=== PATIENT | female | born 1960 | race Caucasian/White ===

== ENCOUNTER 2022-12-10 08:43 | Inpatient (IN) | payer BC ==
[2022-12-10] VITALS (18 sets, daily range): BP systolic 99–135; BP diastolic 53–76
[~2022-12-10] VITALS: Ht 170.2 cm; Wt 67.9 kg
[~2022-12-10 08:43] MED LIST: ASPI81CH PO; LISI5 PO; METF500 PO; METO50ER PO
--- NOTE | 2022-12-10 17:25 | NUR ---
SHIFT SUMMARY S/P ABD YSESY/BIOPSY, 3 LAP SITES AND TRANSVERSE W/EXOFIN CDI. A&OX4, VSS/RA, MASOOD PO CLD, PRACTICE DIRECTOR MANAGING PAIN, BRISCOE PATENT/STAT LOCK ON/OFF FLOOR. PLAN FOR CT @ 0800. AT BEDSIDE. WILL REPORT TO ONCOMING NOC RN.
[2022-12-11 04:13] VITALS: BP 112/70
--- NOTE | 2022-12-11 04:48 | NUR ---
SHIFT SUMMARY POD1 LYSIS OF ADHESIONS PT HAS 3 LAP SIES WITH GLUE, 1 TRANSVERSE ABD INCISION WITH GLUE, ALL C/D/I. VITA DRAIN IN RLQ DRAINING SEROSANGUNEIUOS FLUID, BULB COMPRESSED. PT ON SOLDERING MACHINE OPERATOR, PAIN CONTROLLED PER EMAR WITH SOLDERING MACHINE OPERATOR. BRISCOE IN DRAINING CLEAR YELLOW URINE. PT TOLERATING PO INTAKE. DENIES ANY N/V. SLEPT T/O NIGHT. VSS. NO OTHER CONCERNS AT THIS TIME. CALL LIGHT WITHIN REACH.
[2022-12-11 04:49] LABS: BASOPHILS ABSOLUTE AUTO 0.03 K/mm3 (0.00-0.23); BASOPHILS PERCENT AUTO 0 % (0-2); EOSINOPHILS ABSOLUTE AUTO 0.02 K/mm3 (0.00-0.68); EOSINOPHILS PERCENT AUTO 0 % (0-6); Hematocrit 32.2 % (33.0-51.0); Hemoglobin 10.8 g/dL (11.5-16.0); IMMATURE GRAN ABSOLUTE AUTO 0.08 K/mm3 (0.00-0.10); IMMATURE GRAN PERCENT AUTO 1 % (0-1); LYMPHOCYTES ABSOLUTE AUTO 1.63 K/mm3 (0.84-5.20); LYMPHOCYTES PERCENT AUTO 14 % (21-46); MONOCYTES ABSOLUTE AUTO 0.99 K/mm3 (0.16-1.47); MONOCYTES PERCENT AUTO 8 % (4-13); Mean Corpuscular HGB 29.8 pg (26.0-34.0); Mean Corpuscular HGB Conc 33.5 g/dL (31.5-36.5); Mean Corpuscular Volume 89 fL (80-100); Mean Platelet Volume 9.3 fL (9.1-12.4); NEUTROPHILS ABSOLUTE AUTO 9.19 K/mm3 (1.96-9.15); NEUTROPHILS PERCENT AUTO 77 % (41-73); Platelet Count 216 K/mm3 (150-400); RDW Coefficient Variation 13.1 % (11.7-14.2); RDW Standard Deviation 42.5 fL (35.1-46.3); Red Blood Cell Count 3.63 M/mm3 (3.80-5.20); White Blood Cell Count 11.94 K/mm3 (4.00-11.30)
[2022-12-11 05:47] LABS: Bun/Creatinine Ratio 16.7 (12.0-20.0); Calcium, Blood 8.9 mg/dL (8.5-10.1); Creatinine, Blood 0.72 mg/dL (0.40-1.00); Potassium, Blood 4.2 mmol/L (3.5-5.5)
--- NOTE | 2022-12-11 07:17 | NUR ---
[facility] NURSE FENTANYL WASTE. WASTED 8ML WITH ARACELI Llamas RN. NEW CARTRIDGE PUT IN.
[2022-12-11 07:32] VITALS: BP 119/70
--- NOTE | 2022-12-11 07:53 | NUR ---
PT AWAKE, RATES PAIN LEVEL AT 1/10, DENIES ANY OTHER DISCOMFORT AT THIS TIME, PT GOING TO CT THIS AM.
--- NOTE | 2022-12-11 09:46 | NUR ---
Spiritual care visit. Pt. is sitting up in a chair. when she welcomes my visit. Spouse is present. pt. is pleasant and werbalized her interest in talking with the ethylbenzene converter operator. Considered matters of arlene and belief and facilitated a life review. Pt. displays a bouyant spirit, and she is engaged and aware of her circumstances. Prayed with Pt. and spouse. Both verbalized gratitude for the spiritual care visit.
[2022-12-11 15:03] VITALS: BP 114/79
[2022-12-11 19:14] VITALS: BP 118/61
--- NOTE | 2022-12-11 19:25 | NUR ---
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 TO DRAIN SEROUSANG. DRAINAGE, AMBULATED DOWN THE HALLS, REPORTS PASSING FLATUS AND TOLERAATING REGULAR DIET WELL, NO ACUTE CHANGES THIS SHIFT.
[2022-12-12 04:14] VITALS: BP 127/66
--- NOTE | 2022-12-12 04:34 | NUR ---
SHIFT SUMMARY POD 2 LYSIS OF ADHESIONS PT SLEPT T/O NIGHT. VOIDING AND TOLERATING PO INTAKE. PAIN MANAGED PER EMAR. VITA DRAINING SEROSANGINEUOS FLUID, BULB COMPRESSED, DRESSING C/D/I. 3 LAP SITES AND 1 TRANSVERSE ABD INCISION C/D/I. LIGHT BRUISING TO LOWER ABD WHERE INSICION IS. NO OTHER CONCERNS AT THIS TIME. CALL LIGHT WITHIN REACH
[2022-12-12 07:14] VITALS: BP 131/59
[2022-12-12 14:21] VITALS: BP 136/69
--- NOTE | 2022-12-12 19:15 | NUR ---
SHIFT SUMMARY POD2 YESSY, A/OX4,VSS,TOLERATING PO, PAIN WELL MANAGED, INDEPENENT IN THE ROOM, VITA DRAIN WITH MINIMAL OUTPUT TODAY. NO ACUTE EVENTS THIS SHIFT, CALL LIGHT IN REACH.
[2022-12-12 19:59] VITALS: BP 130/64
[2022-12-13 04:21] VITALS: BP 145/69
[2022-12-13 06:22] LABS: BASOPHILS ABSOLUTE AUTO 0.03 K/mm3 (0.00-0.23); BASOPHILS PERCENT AUTO 0 % (0-2); EOSINOPHILS ABSOLUTE AUTO 0.19 K/mm3 (0.00-0.68); EOSINOPHILS PERCENT AUTO 2 % (0-6); Hematocrit 32.7 % (33.0-51.0); Hemoglobin 10.7 g/dL (11.5-16.0); IMMATURE GRAN ABSOLUTE AUTO 0.05 K/mm3 (0.00-0.10); IMMATURE GRAN PERCENT AUTO 1 % (0-1); LYMPHOCYTES ABSOLUTE AUTO 1.29 K/mm3 (0.84-5.20); LYMPHOCYTES PERCENT AUTO 16 % (21-46); MONOCYTES ABSOLUTE AUTO 0.65 K/mm3 (0.16-1.47); MONOCYTES PERCENT AUTO 8 % (4-13); Mean Corpuscular HGB 29.5 pg (26.0-34.0); Mean Corpuscular HGB Conc 32.7 g/dL (31.5-36.5); Mean Corpuscular Volume 90 fL (80-100); Mean Platelet Volume 9.6 fL (9.1-12.4); NEUTROPHILS ABSOLUTE AUTO 5.72 K/mm3 (1.96-9.15); NEUTROPHILS PERCENT AUTO 72 % (41-73); Platelet Count 215 K/mm3 (150-400); RDW Coefficient Variation 13.1 % (11.7-14.2); RDW Standard Deviation 43.4 fL (35.1-46.3); Red Blood Cell Count 3.63 M/mm3 (3.80-5.20); White Blood Cell Count 7.93 K/mm3 (4.00-11.30)
--- NOTE | 2022-12-13 06:26 | NUR ---
SHIFT SUMMARY PT IS POD#3 FOR YESSY AND BIOPSY OF A UTERINE MASS (BENIGN). PT'S VITAL SIGNS HAVE BEEN STABLE THROUGHOUT THE NIGHT. PT IS A&O, ON RA, AND IS INDEPENDENT IN THE ROOM. CT WAS PERFORMED THIS AM AROUND 0515. VITA DRAIN MAY POSSIBLY BE REMOVED TODAY (MINIMAL DRAINAGE OF 20ML SANGUINEOUS FLUID). LAP SITES AND TRANSVERSE INCISION ARE WNL. PT REQUESTED PAIN MEDICATION AT THE BEGINNING OF THE SHIFT LAST NIGHT AND SOME ANTI-NAUSEA MEDICATION THIS MORNING BEFORE BEING SALINE LOCKED AND HEADING TO CT. BED IS IN LOWEST POSITION, CALL LIGHT IS WITHIN REACH.
[2022-12-13 07:09] VITALS: BP 137/66
[2022-12-13] MEDS ORDERED: Percocet 5-3251 EACH PO (15:25)
[2022-12-13] MEDS ORDERED: AMOCLA500 PO (15:34)
[2022-12-13] MEDS ORDERED: IBU800 MG PO (15:35)
[2022-12-13] MEDS ORDERED: METR500 PO (15:36)
[2022-12-13] MEDS ORDERED: Diflucan150 MG PO (15:39)
[2022-12-13 15:49] VITALS: BP 128/76
--- NOTE | 2022-12-13 17:12 | NUR ---
DISCHARGE SUMMARY POD3 YESSY, A/OX4, VSS, TOLERATING PO, AMBULATING INDEPENDENTLY, VOIDING WELL, BM THIS SHIFT, LAP SITES X3 C/D/I, VITA DRAIN REMOVED BY MD WITH CLEAN STERILE DRESSING APPLIED ALSO BY MD. IV ACCESS REMOVED PRIOR TO DC. DISCUSSED DISCHARGE INFORMATION INCLUDING HOME CARE, MEDICATIONS, AND FOLLOW UP APPOINTMENTS. PROVIDED WRITTEN PRESCRIPTIONS TO HER BEFORE DISCHARGE. ESCORTED OUT VIA WC TO PRIVATE AUTO TO GO HOME.
== END 2022-12-13 16:20 | disposition home or self-care (01) | DRG 742 ==
LOC: SURS 08:43 → ORSCMMR 08:43 → ORD 10:30 → SURS 13:21 → ORSCMMR 13:22 → SURS 13:22
PROVIDERS: Surgery; ADMIT Obstetrics & Gynecology
PROC: 0UJD4ZZ Inspection of Uterus and Cervix, Percutaneous Endoscopic Approach (ICD-10-PCS; principal; 2022-12-10 10:30)
PROC: 0UB90ZZ Excision of Uterus, Open Approach (ICD-10-PCS; 2022-12-10 10:30)
PROC: 0UN90ZZ Release Uterus, Open Approach (ICD-10-PCS; 2022-12-10 10:30)
DX: N81.2 Incomplete uterovaginal prolapse (principal); K91.72 Accidental puncture and laceration of a digestive system organ or structure during other procedure; N73.0 Acute parametritis and pelvic cellulitis; N73.6 Female pelvic peritoneal adhesions (postinfective); Z53.31 Laparoscopic surgical procedure converted to open procedure
CPT/HCPCS: 36415; 74176; 74177; 80048; 82947; 85025; 86304; 87070; 87075; 87077; 87186; 87205; 93005; 93010; A9270; J0690; J1885; J2250; J2405; J2543; J2704; J3010; J7040; J7120; Q9967

== ENCOUNTER → 2023-08-03 | Outpatient (CLI) | payer BC ==
[~2023-08-03] MED LIST changes: +AMOCLA500 PO; +Diflucan150 MG PO; +IBU800 MG PO; +METR500 PO; +Percocet 5-3251 EACH PO
== END | disposition home or self-care (01) ==
LOC: LAB SHORT 14:27 → LAB 14:27
DX: R30.0 Dysuria (principal)
CPT/HCPCS: 87086